=== PATIENT | female | born 1950 | race Caucasian/White ===

== ENCOUNTER → 2017-04-10 | Outpatient (CLI) | payer BC ==
[~2017-04-10] MED LIST: NS 100 ML IV 100 ML IV ONE
[2017-04-10 08:41] LABS: CREATININE 0.85 mg/dL (0.55-1.02)
--- NOTE | 2017-04-10 09:33 | CT ---
CT abdomen and pelvis with contrast Indication: Abdominal and flank pain and hematuria Technique: Helical CT images of the abdomen and pelvis were obtained with IV contrast. Reformatted i mages in the coronal and sagittal planes were also generated for review. Comparison: None Findings: The visualized lung bases are clear. No aggressive osseous lesions are identified. The liver, gallbladder, spleen, pancreas and adrenals are unremarkable. 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 Both kidneys otherwise enhance symmetrically without evidence of obstruction. No definite radiopa que urolithiasis is identified, given limitations of contrast-enhanced exam. The urinary bladder is unremarkable. There is extensive colonic diverticulosis. There is very mild wall thickening of the proximal sigmoi d colon ( Image 65, Impression: Reported By:
== END ==
LOC: RAD 08:17
PROVIDERS: ATTEND Internal Medicine
DX: R10.84 Generalized abdominal pain (principal); R31.9 Hematuria, unspecified
CPT/HCPCS: 36415; 74177; 82565; 84520; A4222